=== PATIENT | female | born 1970 | race African-American/Black ===

== ENCOUNTER 2017-01-11 18:54 | Emergency (ER) | payer OTHER | END 2017-01-11 20:50 | disposition home or self-care (01) | LOC: ER1 18:54 | DX: T63.441A Toxic effect of venom of bees, accidental (unintentional), initial encounter (principal); R60.0 Localized edema; I10 Essential (primary) hypertension; F32.9 Major depressive disorder, single episode, unspecified; Z79.82 Long term (current) use of aspirin; Z79.899 Other long term (current) drug therapy | CPT/HCPCS: 96361; 96374; 96375; 99282; J2930 ==

== ENCOUNTER → 2020-08-17 | Outpatient (CLI) | payer OTHER ==
[~2020-08-17] MED LIST: ANTIVERT 12.512.5 MG PO; BACLOFEN10 MG PO; CELEBREX 200MG200 MG PO; CYANOCOBAL1000 MCG/1 IM; DEXILANT60 MG PO; DULERA 100 MCG8.8 GM INH; ECOTRIN81 MG PO; ELIQUIS5 MG PO; FLONASE 0.05% N16 GM; IMITREX50 MG PO; TOPAMAX100 MG PO; TOPROL XL25 MG PO; TRINTELLIX PO; VITAMIN D250000 UNIT PO; ZOFRAN4 MG PO
== END ==
LOC: KOH-I 16:08
DX: J20.9 Acute bronchitis, unspecified (principal)
CPT/HCPCS: 71046

== ENCOUNTER → 2020-10-25 | Outpatient (CLI) | payer OTHER | LOC: HEART 5 10:51 → ECHO 11:00 → HEART 5 13:30 | DX: R00.2 Palpitations (principal) ==

== ENCOUNTER → 2021-06-08 | Outpatient (CLI) | payer OTHER | LOC: ECHO 11-17 10:00 | DX: R06.02 Shortness of breath (principal); I08.1 Rheumatic disorders of both mitral and tricuspid valves | CPT/HCPCS: ECHO; 93306 ==

== ENCOUNTER → 2021-08-03 | Outpatient (CLI) | payer OTHER | LOC: KOH-I 09:43 | DX: M25.572 Pain in left ankle and joints of left foot (principal); M79.672 Pain in left foot; M25.571 Pain in right ankle and joints of right foot; M19.072 Primary osteoarthritis, left ankle and foot; M79.89 Other specified soft tissue disorders | CPT/HCPCS: 73610; 73630 ==